=== PATIENT | male | born 1995 | race Caucasian/White ===

== ENCOUNTER → 2018-04-28 | Outpatient (CLI) | payer OTHER ==
--- NOTE | 2018-05-03 19:44 | SLEEPCENT ---
DATE OF PROCEDURE: 04/28/2018 ORDERED BY: Marium Eldridge Nocturnal polysomnography was performed for evaluation of sleep physiology in this patient with a history of excessive somnolence and snoring. 8 hours and 17 minutes of data were reviewed. There were 436 minutes of sleep identified. Sleep latency was prolonged at 43 minutes. Rapid eye movement (REM) latency was prolonged at 186 minutes. Sleep architecture improved late in the study. There were three REM cycles noted. Overall sleep efficiency was 88.7%. The patient's electrocardiogram showed a sinus rhythm with an average heart rate of 60 beats per minute. EEG showed some coarsening in background, alpha intrusion into non-REM stages. There were 31 respiratory events identified of 10 seconds in duration or greater for an apnea-hypopnea index of 5.1. The events were primarily obstructive, more frequent in stage REM and in the supine posture. Arousals from respiratory events occurred 2.3 times per hour. There were no significant oxygen desaturations and limb activity was limited. Snoring was noted over the course of the study. IMPRESSION: Mild positional obstructive sleep apnea syndrome (G47.33). Apnea-hypopnea index 5.1. RECOMMENDATIONS: The patient should be encouraged to undergo sleep position retraining for avoidance of the supine posture. Should sleep symptoms persist, referral back to the sleep disorder center for pressure therapy could be considered.
== END ==
LOC: M SLEEP 19:53
PROVIDERS: ATTEND Nurse Practitioner Adult Health
DX: G47.33 Obstructive sleep apnea (adult) (pediatric) (principal)

== ENCOUNTER → 2018-05-31 | Outpatient (CLI) | payer OTHER ==
--- NOTE | 2018-06-02 23:46 | SLEEPCENT ---
DATE OF PROCEDURE: 05/31/2018 ORDERED BY: Marium Eldridge Nocturnal polysomnography was performed for the titration of pressure therapy in this patient with obstructive sleep apnea syndrome. Apnea-hypopnea hypopnea index 5.1. For testing, a [employer] Quattro full face mask of small size was used, 4 cm of water pressure were applied to the circuit and the lights were extinguished. 7 hours and 35 minutes of data were reviewed. There were 328 minutes of sleep identified. Sleep latency was mildly prolonged at 30 minutes. Rapid eye movement (REM) latency more so prolonged at 211 minutes. Sleep architecture improved later in the study. There were two REM cycles noted. Overall sleep efficiency was 73%. The patient's electrocardiogram showed a sinus rhythm with an average heart rate of 54 beats per minute. EEG showed normal waveforms for awake and sleep. Respiratory events were fully palliated with continuous positive airway pressure (CPAP) at a pressure of +7 and remaining measures of sleep physiology were normal. IMPRESSION: Obstructive sleep apnea syndrome (G47.33). RECOMMENDATIONS: Nightly use of pressure therapy 7 cm of water.
== END ==
LOC: M SLEEP 20:03
PROVIDERS: ATTEND Nurse Practitioner Adult Health
DX: G47.33 Obstructive sleep apnea (adult) (pediatric) (principal)